=== PATIENT | female | born 2000 | race Caucasian/White ===

== ENCOUNTER 2025-04-22 10:59 | Emergency (ER) | payer BC ==
[2025-04-22] MEDS ORDERED: Magnesium 2 GM/50 ML BAG (IN WATER) ONE (11:20)
[2025-04-22 11:40] LABS: #Basophils 0.05 10x3/uL (0.0-0.2); #Eosinophils Less than 0.03 10x3/uL (0.0-0.7); #Monocytes 0.44 10x3/uL (0.11-0.59); #Neutrophils 6.22 10x3/uL (1.40-6.50); %Basophils 0.6 % (0.0-1.0); %Eosinophils 0.1 % (0.0-10.0); %Lymphocytes 25.1 % (21.0-51.0); %Monocytes 4.9 % (0.0-10.0); %Neutrophils 68.7 % (42.0-75.0); Hematocrit 40.3 % (36.0-47.0); Hemoglobin 13.8 g/dL (12.0-16.0); Mean Corpuscular Hemoglobin 28.2 pg (27.0-31.0); Mean Corpuscular Volume 82.4 fL (78.0-98.0); Platelet Count 324 10x3/uL (130-400); Red Blood Cell (RBC) Count 4.89 mill/uL (4.20-5.40); White Blood Cell (WBC) Count 9.04 10x3/uL (4.8-10.8)
[2025-04-22 11:55] LABS: Pregnancy Test - Urine (BHCG) Negative (Negative); Pregu Control Background? CLEAR/WHITE (CLR/WHITE); Pregu Control Bar Appear? YES (CONTROL BAR)
[2025-04-22 11:57] LABS: ALT (SGPT) 35 U/L (Less than 34); AST (SGOT) 38 U/L (11-34); Albumin 4.1 g/dL (3.1-4.5); Alkaline Phosphatase 57 U/L (40-110); Anion Gap 16 mmol/L (10-20); BUN (Urea Nitrogen) 9 mg/dL (7.0-18.7); Bilirubin, Total 0.5 mg/dL (0.3-1.2); CAUTI Indications for Culture Dysuria,urgency,freq; Calc. Creatinine Clearance 0 mL/min (70-130); Calcium 9.3 mg/dL (7.8-10.44); Carbon Dioxide 21 mmol/L (22-29); Chloride 109 mmol/L (98-107); Globulin 4.2 g/dL (2.4-3.5); Glucose 119 mg/dL (70-105); Glucose, Urine (Dipstick) Normal (Negative); Leukocyte Negative Leu/uL (Negative); Lipase 21 U/L (8-78); Potassium 3.6 mmol/L (3.5-5.1); Protein, Urine (Dipstick) Negative (Neg-Trace); RBC/HPF 0-3 HPF (0-3); Sodium 142 mmol/L (136-145); Specific Gravity, Urine 1.005 (1.002-1.036); WBC/HPF 0-3 HPF (0-3)
[2025-04-22 11:58] LABS: Bacteria/HPF 1+ HPF (None Seen)
[2025-04-22 11:59] LABS: Urine Culture Reflex No No
== END 2025-04-22 13:25 | disposition home or self-care (01) ==
LOC: ERS 10:59
DX: R11.2 Nausea with vomiting, unspecified (principal); R53.83 Other fatigue
CPT/HCPCS: 80053; 81001; 81025; 83690; 85025; 96365; J3475